=== PATIENT | female | born 1975 | race Caucasian/White ===

== ENCOUNTER → 2025-02-10 10:54 | Outpatient (REF) | payer OTHER, SELFPAY ==
[2025-02-10 11:19] LABS: Hematocrit 31.1 % (37.0-47.0); Hemoglobin 8.6 g/dL (12.0-16.0); Mean Corp Hgb Conc. 27.7 g/dL (33.0-37.0); Mean Corpuscular Volume 67.5 fL (81.0-99.0); Nucleated Red Blood Cells % 0 %; Platelet Count 520 10^3/uL (130-400); Red Cell Dist. Width 20.2 % (11.5-14.5)
== END ==
LOC: REG 10:54
DX: R94.31 Abnormal electrocardiogram [ECG] [EKG] (principal)
CPT/HCPCS: 85025